=== PATIENT | male | born 1980 | race Two or more races ===

== ENCOUNTER 2018-11-30 11:31 | Emergency (ER) | payer BC ==
[2018-11-30] MEDS ORDERED: Albuterol/Ipratropium 3.0-0.5 MG/3 ML Neb Soln NEB ONE (11:54)
[2018-11-30] MEDS ORDERED: methylPREDNISolone Sodium Succinate 125 MG/2 ML SDV IM ONE (11:54)
--- NOTE | 2018-11-30 11:55 | EDM.PDOC ---
ED HPI GENERAL MEDICAL PROBLEM - General Chief Complaint: Respiratory Problem Stated Complaint: COUGH Time Seen by Provider: 11/30/18 11:54 Source of Information: Reports: Patient History Limitations: Reports: No Limitations - History of Present Illness INITIAL COMMENTS - FREE TEXT/NARRATIVE: HISTORY AND PHYSICAL: History of present illness: Patient is a 38-year-old male presents to the ED with complaint of cough 3 days. He reports some shortness of breath and congestion in his chest as well as subjective fevers. Denies chest pain, nausea, vomiting, abdominal pain, diarrhea. He denies tobacco use. He denies significant past medical history. He is not taking anything for her symptoms. Review of systems: As per history of present illness and below otherwise all systems reviewed and negative. Past medical history: As per history of present illness and as reviewed below otherwise noncontributory. Surgical history: As per history of present illness and as reviewed below otherwise noncontributory. Social history: No reported history of drug or alcohol abuse. Family history: As per history of present illness and as reviewed below otherwise noncontributory. Physical exam: General: Patient sitting comfortably in no acute distress and nontoxic appearing HEENT: Atraumatic, normocephalic, pupils reactive, negative for conjunctival pallor or scleral icterus, mucous membranes moist, throat clear, neck supple, nontender, trachea midline. No meningeal signs. Lungs: Breath sounds are diminished with wheezing throughout, chest nontender. Heart: S1S2, regular, negative for clicks, rubs, or overt murmur. Abdomen: Soft, nondistended, nontender. Negative for masses or hepatosplenomegaly. Negative for costovertebral tenderness. No rigidity, rebound , guarding. Pelvis: Stable nontender. Genitourinary: Deferred. Rectal: Deferred. Extremities: Atraumatic, negative for cords or calf pain. Neurovascular unremarkable. Neuro: Awake, alert, oriented. Cranial nerves II through XII unremarkable. Cerebellum unremarkable. Motor and sensory unremarkable throughout. Exam nonfocal. Notes: Diagnostics: Chest x-ray Therapeutics: DuoNeb Solu-Medrol 125 mg IM Prescriptions: Ventolin inhaler Medrol Dosepak Impression: Acute bronchitis Plan: Take medications as instructed Follow-up with primary care provider Return to ED as needed as discussed Definitive disposition and diagnosis as appropriate pending reevaluation and review of above. Throat Pain Score (Numeric/FACES): 7 - Related Data Allergies Allergy/AdvReac Type Severity Reaction Status Date / Time No Known Allergies Allergy Verified 11/30/18 11:41 Home Meds: Home Meds Albuterol [Ventolin HFA] 1 puff INH Q4H #1 inhaler 11/30/18 [Rx] methylPREDNISolone [Medrol] 4 mg PO ASDIRECTED #1 tab.ds.pk 11/30/18 [Rx] Past Medical History - Past Health History Medical/Surgical History: Denies Medical/Surgical History - Infectious Disease History Infectious Disease History: Reports: None Social & Family History - Family History Family Medical History: Noncontributory - Tobacco Use Smoking Status *Q: Never Smoker Second Hand Smoke Exposure: No - Caffeine Use Caffeine Use: Reports: Coffee - Recreational Drug Use Recreational Drug Use: No ED ROS GENERAL - Review of Systems Review Of Systems: ROS reveals no pertinent complaints other than HPI. ED EXAM, GENERAL - Physical Exam Exam: See Below (See dictation) Course - Vital Signs Last Recorded V/S: Last Vital Signs Temp 97.2 F 11/30/18 11:42 Pulse 71 11/30/18 11:42 Resp 16 11/30/18 11:42 BP 122/79 11/30/18 11:42 Pulse Ox 95 11/30/18 11:42 - Orders/Labs/Meds Orders: Active Orders 24 hr Category Date Time Status RT Aerosol Therapy [RC] ASDIRECTED Care 11/30/18 11:54 Active Meds: Medications Discontinued Medications Generic Name Dose Route Start Last Admin Trade Name Flash PRN Reason Stop Dose Admin Albuterol/Ipratropium 3 ml 11/30/18 11:54 11/30/18 12:07 Duoneb 3.0-0.5 Mg/3 Ml NEB 11/30/18 11:55 3 ml ONETIME ONE Administration Methylprednisolone Sodium Succinate 125 mg 11/30/18 11:54 11/30/18 12:17 Solu-Medrol IM 11/30/18 11:55 125 mg ONETIME ONE Administration Departure - Departure Time of Disposition: 12:29 Disposition: Home, Self-Care 01 Condition: Good Clinical Impression: Acute bronchitis - Discharge Information Referrals: PCP,None [Primary Care Provider] - Forms: ED Department Discharge Additional Instructions: The following information is given to patients seen in the emergency department who are being discharged to home. This information is to outline your options for follow-up care. We provide all patients seen in our emergency department with a follow-up referral. The need for follow-up, as well as the timing and circumstances, are variable depending upon the specifics of your emergency department visit. If you don't have a primary care physician on staff, we will provide you with a referral. We always advise you to contact your personal physician following an emergency department visit to inform them of the circumstance of the visit and for follow-up with them and/or the need for any referrals to a consulting specialist. The emergency department will also refer you to a specialist when appropriate. This referral assures that you have the opportunity for follow-up care with a specialist. All of these measure are taken in an effort to provide you with optimal care, which includes your follow-up. Under all circumstances we always encourage you to contact your private physician who remains a resource for coordinating your care. When calling for follow-up care, please make the office aware that this follow-up is from your recent emergency room visit. If for any reason you are refused follow-up, please contact the [facility] Emergency Department at and asked to speak to the emergency department charge nurse. [facility] [address] [place] [address] [id number] [address] [address] Take medications as instructed Follow-up with primary care provider Return to ED as needed as discussed - My Orders Last 24 Hours: My Active Orders 11/30/18 11:54 RT Aerosol Therapy [RC] ASDIRECTED - Assessment/Plan Last 24 Hours: My Active Orders 11/30/18 11:54 RT Aerosol Therapy [RC] ASDIRECTED
--- NOTE | 2018-11-30 12:26 | CR ---
Chest: Portable view of the chest was obtained. Comparison: No prior chest x-ray. Heart size and mediastinum are within normal limits for portable technique. Lungs are clear. Bony structures are unremarkable. Impression: 1. Nothing acute is seen on portable chest x-ray. Diagnostic code #1 MTDD
== END 2018-11-30 12:50 | disposition home or self-care (01) ==
LOC: MW.ED 11:31
DX: J20.9 Acute bronchitis, unspecified (principal)
CPT/HCPCS: 71045; 94640; 96372; 99283; J2930; J7620-GY